=== PATIENT | female | born 1990 | race Two or more races ===

== ENCOUNTER 2020-12-17 15:00 | Inpatient (IN) | payer OTHER ==
[~2020-12-17] VITALS: Ht 172.7 cm; Wt 85.7 kg
[2021-01-01] MEDS ORDERED: PRENATAL + DHA1 EAC1 PO (08:42)
== END 2021-01-03 12:46 | disposition home or self-care (01) | DRG 788 ==
LOC: EDBD 15:00 → SURH 15:00 → LDR 12-31 05:26 → EDBD 12-31 05:26 → OB/GYN 12-31 05:26
PROVIDERS: ADMIT Obstetrics & Gynecology Maternal & Fetal Medicine; ATTEND Obstetrics & Gynecology Maternal & Fetal Medicine
PROC: 4A1HXFZ Monitoring of Products of Conception, Cardiac Rhythm, External Approach (ICD-10-PCS; 2020-12-31)
PROC: 10D00Z1 Extraction of Products of Conception, Low, Open Approach (ICD-10-PCS; principal; 2020-12-31 21:00)
DX: O65.9 Obstructed labor due to maternal pelvic abnormality, unspecified (principal); Z3A.39 39 weeks gestation of pregnancy; Z37.0 Single live birth; Z20.822 Contact with and (suspected) exposure to COVID-19

== ENCOUNTER → 2020-12-27 | Outpatient (CLI) | payer OTHER | END | disposition home or self-care (01) | LOC: EDBD 11:33 → NST 11:33 | PROVIDERS: ATTEND Obstetrics & Gynecology Maternal & Fetal Medicine | DX: Z34.83 Encounter for supervision of other normal pregnancy, third trimester (principal) ==

== ENCOUNTER 2025-05-31 08:15 | Inpatient (IN) | payer OTHER ==
[~2025-05-31] VITALS: Ht 170.2 cm; Wt 3.6 kg
[~2025-05-31 08:15] MED LIST: PRENATAL + DHA1 EAC1 PO
[2025-06-12 06:20] VITALS: BP 130/88
[2025-06-12] MEDS ORDERED: OXYTOCIN 10 UNITS/ML VIAL ONE ×3 (07:43→10:38)
[2025-06-12] MEDS ORDERED: ERYTHROMYCIN BASE OPHT 1GM EACH TUBE OP ONE (07:43)
[2025-06-12] MEDS ORDERED: CITRIC ACID/SODIUM CITRATE 30 ML BLIST.PACK PO ONE (07:43)
[2025-06-12] MEDS ORDERED: CEFAZOLIN SODIUM 1,000 MG VIAL ONE (07:44)
[2025-06-12] MEDS ORDERED: KETOROLAC TROMETHAMINE 30 MG VIAL ONE (10:38)
[2025-06-12] MEDS ORDERED: KETOROLAC TROMETHAMINE 30 MG VIAL IM ONE (11:00)
[2025-06-12] MEDS ORDERED: OXYTOCIN 1,000 ML IV SCH (11:15)
[2025-06-12] MEDS ORDERED: ONDANSETRON HCL 2 MG/ML VIAL IV PRN (12:00)
[2025-06-12] MEDS ORDERED: KETOROLAC TROMETHAMINE 10 MG TABLET PO SCH (12:00)
[2025-06-12] MEDS ORDERED: MORPHINE SULFATE 4 MG/ML VIAL IV PRN (12:00)
[2025-06-12 12:34] VITALS: BP 112/74
[2025-06-12 14:50] LABS: BASO % 0.2 % (0.1-1.2); EOS # 0.03 (0.04-0.54); EOS % 0.3 % (0.7-7.0); LYMPH # 0.98 (1.18-3.74); LYMPH % 9.0 % (19.3-53.1); MEAN PLATELET VOLUME 10.00 fl (9.4-12.4); MONO # 0.53 (0.24-0.82); MONO % 4.9 % (4.7-12.5); NEUT # 9.25 (1.56-6.13); NEUT % 85.2 % (34.0-71.1); RED CELL DISTRIBUTION WIDTH 13.4 % (11.6-14.4)
[2025-06-12 16:00] VITALS: BP 114/75
[2025-06-12] MEDS ORDERED: CEFOXITIN SODIUM 2,000 MG VIAL IV SCH (17:00)
[2025-06-12] MEDS ORDERED: SIMETHICONE 125 MG CAPSULE PO SCH (17:00)
[2025-06-13 00:15] VITALS: BP 117/75
[2025-06-13 06:57] LABS: BASO % 0.2 % (0.1-1.2); EOS # 0.05 (0.04-0.54); EOS % 0.6 % (0.7-7.0); LYMPH # 0.94 (1.18-3.74); LYMPH % 11.4 % (19.3-53.1); MEAN PLATELET VOLUME 10.00 fl (9.4-12.4); MONO # 0.50 (0.24-0.82); MONO % 6.1 % (4.7-12.5); NEUT # 6.68 (1.56-6.13); NEUT % 81.3 % (34.0-71.1); RED CELL DISTRIBUTION WIDTH 13.4 % (11.6-14.4)
[2025-06-13] MEDS ORDERED: FF) RHO(D) IMMUNE GLOBULIN (POM) IM ONE (07:45)
[2025-06-13 08:00] VITALS: BP 113/88
[2025-06-13] MEDS ORDERED: OxyCODONE HCL 5 MG TABLET (ROXICODONE) PO SCH (08:00)
[2025-06-13 20:34] VITALS: BP 138/86
[2025-06-14] VITALS: BP 121/83
[2025-06-14] MEDS ORDERED: OXYCODONE HCL5 MG PO (07:33)
[2025-06-14] MEDS ORDERED: KETO10TA2 PO (07:33)
[2025-06-14 08:57] VITALS: BP 115/79
== END 2025-06-14 15:54 | disposition home or self-care (01) | DRG 788 ==
LOC: O/R 06-12 07:00 → OB/GYN 06-12 07:00
PROVIDERS: ADMIT Obstetrics & Gynecology Maternal & Fetal Medicine; ATTEND Obstetrics & Gynecology Maternal & Fetal Medicine
PROC: 4A1HXCZ Monitoring of Products of Conception, Cardiac Rate, External Approach (ICD-10-PCS; 2025-06-12)
PROC: 10D00Z1 Extraction of Products of Conception, Low, Open Approach (ICD-10-PCS; principal; 2025-06-12 09:15)
DX: O34.211 Maternal care for low transverse scar from previous cesarean delivery (principal); Z3A.38 38 weeks gestation of pregnancy; Z37.0 Single live birth